=== PATIENT | female | born 1985 | race Caucasian/White ===

== ENCOUNTER 2016-12-22 05:23 | Inpatient (IN) | payer OTHER ==
--- NOTE | ~2016-12-22 | HP ---
Unit #: [id number] #: [id number] Patient: SUMIT MARCUS [id number] [address] [place], [place] [address] [id number] E MR#: [id number] NAME: SUMIT MARCUS ROOM: Age: 31 Sex: F Admission Date: 12/22/2016 : 1985 Attending Physician: Sanjay Antonio M.D. Primary Care Physician: No Primary Care Physician HISTORY AND PHYSICAL CHIEF COMPLAINT Left flank pain, nausea and vomiting. HISTORY This 31-year-old woman is in the emergency department with her , and both speak limited Trinidadian. I spoke with them primarily in Amharic. She developed symptoms over 24 hours and presented for evaluation. This led to a CT scan showing an 8- to 9-mm stone in the mid left ureter with severe hydronephrosis. Urinalysis is also abnormal "as noted above." She is having no fever, chills or voiding complaints. PAST MEDICAL HISTORY No chronic illnesses. SURGERIES Caesarian section. MEDICATIONS Anti-inflammatories only. ALLERGIES None known. FAMILY HISTORY Noncontributory. SOCIAL HISTORY Nonsmoker. REVIEW OF SYSTEMS Difficult to perform. PHYSICAL EXAMINATION GENERAL: On examination patient is lying in bed, fairly comfortable at this time, medicated. VITAL SIGNS: Afebrile with stable vital signs. Temperature 98 degrees, pulse 70, blood pressure 121/76, respirations 12. Height is 5'1", weight 170 pounds. HEENT: Unremarkable. RESPIRATORY: Lungs are clear. CARDIAC: Rate and rhythm are regular. ABDOMEN: Soft, tender in the left CVA area. EXTREMITIES: No edema. NEUROLOGIC: Intact. Unit #: [id number] #: [id number] Patient: SUMIT MARCUS [facility]: Creatinine 0.7. Urinalysis - 2+ leukocyte esterase, 10-20 WBCs, no bacteria or squames. X-RAYS: CT scan of the abdomen and pelvis, as noted, with IV contrast shows stone, 9 x 6 mm, at the level of the pelvic vessels with associated moderately severe hydronephrosis. IMPRESSION Large left mid ureteral stone and possible urinary infection. PLAN Will proceed with cystoscopy, left stent placement. Patient has received Rocephin. Will probably require ureteroscopy, laser stent removal in 10-14 days subsequently. Dictated by Saadia Rivsa/terence TD: 12/22/2016 13:08 JOB #: [id number] HISTORY AND PHYSICAL Page 1 of 1 X Sanjay Mari MD X HISTORY AND PHYSICAL
--- NOTE | ~2016-12-22 | CT2 ---
[facility] A Service of [facility] & [facility] RADIOLOGY TEXT RESULTS PATIENT: SUMIT MARCUS LOCATION: A 218-01 : [birth year] UNIT #: [id number] AGE: [address]: Sanjay Antonio MD SEX: F ORDER DR: [id number] [facility] [address] [facility]. [place], [place] [address] [id number] E MR#: [id number] Acc #: [id number] NAME: SUMIT MARCUS : 1985 SEX: F STUDY DATE/TIME: 12/22/2016 9:30 UNIT: MAX ROOM: STUDY DESCRIPTION: CT Abd and Pelv W Cont Attending Physician: Sanjay Antonio M.D. Ordering Physician: Sanjay Antonio M.D. Primary Care Physician: Primary Care Physician No MEDICAL IMAGING REPORT This report is preliminary unless electronic signature is present EXAM CT abdomen and pelvis with contrast INDICATION Abdominal pain today, nausea and vomiting. TECHNIQUE CT of the abdomen and pelvis was performed following the administration of IV contrast. Coronal and sagittal reformatted images were obtained. There are no comparison studies available. This CT examination was performed with one or more of the following radiation dose reduction techniques: automatic exposure control, adjustment of mA and/or kV according to patient size, and iterative reconstruction. FINDINGS The lung bases are clear. The liver, gallbladder and spleen are unremarkable. There is mild left-sided hydronephrosis. There is inflammatory stranding around the left kidney. There is some enhancement of the urothelium within the renal pelvis and proximal ureter. There is mild hydroureter up until the mid ureter where there is a 8-9 mm obstructing stone located in the mid/distal portion of the left ureter. The right kidney is unremarkable. There is an asymmetric nephrogram due to the presence of the hydronephrosis. The adrenal glands and pancreas are unremarkable. PELVIS: IUD. Colon is unremarkable. The appendix is normal. Bone windows are unremarkable. IMPRESSION There is a 8-9 mm obstructing stone within the mid to distal left ureter with associated mild hydronephrosis and hydroureter on the left with delay in the left nephrogram and inflammatory stranding around the left kidney. [facility]. [facility] A Service of [facility] & [facility] RADIOLOGY TEXT RESULTS PATIENT: SUMIT MARCUS LOCATION: A 218-01 : [birth year] UNIT #: [id number] AGE: [address]: Sanjay Antonio MD SEX: F ORDER DR: Dictated by... Preston Novoa M.D. THIS IS AN ELECTRONICALLY VERIFIED REPORT Preston Novoa M.D. at 12/23/2016 9:11 AM TERRI/eric TD: 12/22/2016 09:57 JOB #: [id number] MEDICAL IMAGING REPORT Page 1 of 1 COPY
--- NOTE | ~2016-12-22 | DS ---
Unit #: [id number] #: [id number] Patient: SUMIT MARCUS [id number] [address] [address] [id number] I MR#: [id number] NAME: SUMIT MARCUS ROOM: 218 Age: 31 Sex: F Admission Date: 12/22/2016 : 1985 Discharge Date: 12/24/2016 Attending Physician: Sanjay Antonio M.D. DISCHARGE SUMMARY PRIMARY DIAGNOSIS Left ureteral calculus. SECONDARY DIAGNOSES Urinary tract infection, Proteus mirabilis. PROCEDURE PERFORMED Cystoscopy with left ureteral stent placement on 12/24/2016. DISPOSITION Home. FOLLOWUP The patient to call office to schedule ureteroscopy, laser lithotripsy, and stent removal in 10 to 14 days. DISCHARGE MEDICATIONS Bactrim double strength one b.i.d. for 10 days; Wyalusing 5/325 1 to 2 every 4 to 6 hours as needed for pain #30. HISTORY OF PRESENT ILLNESS This is a 31-year-old Arabic-speaking woman, who presented through the emergency department with an 8 to 9 mm mid left ureteral calculus and severe hydronephrosis. There was no clear sepsis, but clearly urinary tract infection and with a white count elevation and that she was immediately taken to surgery and a left ureteral stent placed. Overnight, she remained free of fever and was partially improved. She was kept an additional day on Rocephin for urine culture results. Her white count decline to normal. She grew Proteus mirabilis sensitive to Bactrim and ampicillin. She is discharged as noted. Dictated by... Sanjay Mari M.D. MONICA/cleveland TD: 12/25/2016 01:31 JOB #: [id number] Unit #: [id number] #: [id number] Patient: SUMIT MARCUS DISCHARGE SUMMARY Page 1 of 1 X Sanjay Mari MD X DISCHARGE SUMMARY
--- NOTE | ~2016-12-22 | OR ---
Unit #: [id number] #: [id number] Patient: SUMIT MARCUS [id number] [address] [address] [id number] I MR#: [id number] NAME: SUMIT MARCUS ROOM: 218 Date of Procedure: 12/22/2016 Admission Date: 12/22/2016 Surgeon: Sanjay Mari M.D. : 1985 Attending Physician: Sanjay Antonio M.D. Primary Care Physician: Primary Care Physician No OPERATIVE REPORT PREOPERATIVE DIAGNOSES Left ureteral calculus with hydronephrosis and urinary tract infection. POSTOPERATIVE DIAGNOSES Left ureteral calculus with hydronephrosis and urinary tract infection. PROCEDURE PERFORMED Cystoscopy with left ureteral stent placement. ANESTHESIA General. INDICATIONS FOR PROCEDURE This is a 31-year-old woman, who presented to the emergency department with a mid ureteral stone 8 x 6 at the pelvic brim as well as evidence of urinary tract infection and leukocytosis. She had preoperative antibiotics. DESCRIPTION OF PROCEDURE The patient was given satisfactory general anesthesia and positioned in dorsal lithotomy. The genitalia were prepped and draped. The 21-Greenlandic rigid cystoscope was introduced with a 30-degree lens and video. The bladder appeared normal. The orifices were normal. Fluoroscopy demonstrated a persistent nephrogram and collimation of the ureter with some evidence of stone progression distally. A Sensor guidewire was passed beyond the stone readily and a 22 x 6 double-J stent internally deployed in excellent position cystoscopically and fluoroscopically. The bladder was drained and the cystoscope was removed to complete the procedure. The patient will be observed overnight on antibiotics with cultures pending. Dictated by... Saadia Rivas/[place] TD: 12/22/2016 15:55 JOB #: [id number] Unit #: [id number] #: [id number] Patient: SUMIT MARCUS OPERATIVE REPORT Page 1 of 1 X Sanjay Mari MD X PROCEDURE OPERATIVE NOTE
[2016-12-22 06:06] LABS: URINE SOURCE CLEAN CATCH
[2016-12-22 06:09] LABS: BASOPHIL# 0.1 X10e3 (0-0.3); BASOPHIL% 0.4 % (0-2.5); EOSINOPHIL% 0.3 % (0.0-7.0); HEMATOCRIT 42.9 % (35.0-45.0); HEMOGLOBIN 14.4 gm/dL (12.0-16.0); LYMPHOCYTE# 2.1 X10e3 (1.0-3.5); LYMPHOCYTE% 16.3 % (17.0-45.0); MEAN CELL VOLUME 92.8 FL (83-96); MEAN CORPUSCULAR HEMOGLOBIN 31.1 PG (28-34); MEAN CORPUSCULAR HGB CONC 33.5 g/dL (30-36); MEAN PLATELET VOLUME 8.2 FL (6.5-11.5); MONOCYTE# 0.6 X10e3 (0-1.0); MONOCYTE% 4.8 % (3.0-12.0); NEUTROPHIL# 10.1 X10e3 (1.5-7.1); NEUTROPHIL% 78.2 % (40-75); PLATELET COUNT 235 X10e3 (140-420); RED BLOOD COUNT 4.62 X10e (3.90-5.30); RED CELL DISTRIBUTION WIDTH 12.8 % (11.0-15.5); WHITE BLOOD COUNT 12.9 X10e3 (4.0-10.5)
[2016-12-22 06:10] LABS: URINE APPEARANCE SL HAZY; URINE BILIRUBIN NEG (NEG); URINE BLOOD 3+ (NEG); URINE COLOR YELLOW; URINE GLUCOSE NORM (NORM); URINE KETONE NEG (NEG); URINE LEUKOCYTE ESTERASE 2+ (NEG); URINE NITRATE NEG (NEG); URINE PROTEIN 1+ (NEG); URINE SPECIFIC GRAVITY 1.025 (1.003-1.035); URINE UROBILINOGEN NORM (NORM)
[2016-12-22 06:12] LABS: DIFF IND NO
[2016-12-22 06:18] LABS: CULTURE INDICATED? YES; URINE BACTERIA AUWI NEG (NEGATIVE); URINE MUCUS PRESENT; URINE SQUAMOUS EPITHELIAL CELL OCCAS /[HPF]
[2016-12-22 06:36] LABS: ALBUMIN SERUM 4.6 g/dL (3.5-5.0); BILIRUBIN, DIRECT 0.2 mg/dL (0.0-0.2); BILIRUBIN,INDIRECT 0.8 mg/dL (0.0-0.9); CALCIUM SERUM 9.4 mg/dL (8.4-10.2); CREATININE SERUM 0.7 mg/dL (0.6-1.4); GLOM FILT RATE Estimated 113.8 mL/min (>60); POTASSIUM 3.3 mmol/L (3.5-5.1); PROTEIN TOTAL SERUM 7.5 g/dL (6.0-8.3)
[2016-12-22] MEDS ORDERED: NAPROSYN500 MG PO (10:41)
[2016-12-23 06:07] LABS: HEMATOCRIT 36.6 % (35.0-45.0); MEAN CORPUSCULAR HEMOGLOBIN 31.4 PG (28-34); MEAN CORPUSCULAR HGB CONC 33.8 g/dL (30-36); MEAN PLATELET VOLUME 8.2 FL (6.5-11.5); RED BLOOD COUNT 3.94 X10e (3.90-5.30); WHITE BLOOD COUNT 9.4 X10e3 (4.0-10.5)
[2016-12-23 06:11] LABS: HEMOGLOBIN 12.4 gm/dL (12.0-16.0)
[2016-12-23 08:10] LABS: CALCIUM SERUM 8.1 mg/dL (8.4-10.2); CREATININE SERUM 0.6 mg/dL (0.6-1.4); GLOM FILT RATE Estimated 119.8 mL/min (>60); POTASSIUM 3.6 mmol/L (3.5-5.1)
[2016-12-24] MEDS ORDERED: HYDROCODON-ACE1 EAC9 PO (16:42)
[2016-12-24] MEDS ORDERED: BACTRIM DS TAB1 EACH (16:42)
== END 2016-12-24 17:15 | disposition home or self-care (01) | DRG 690 ==
LOC: CED 05:23 → C2A 12:30 → CED 12:30 → C2A 16:22 → CED 16:22 → C2A 16:22 → CED 18:10 → C2A 12-24 17:15
PROVIDERS: Emergency Medicine; Urology
PROC: 0T778DZ Dilation of Left Ureter with Intraluminal Device, Via Natural or Artificial Opening Endoscopic (ICD-10-PCS; principal; 2016-12-22 13:00)
DX: N39.0 Urinary tract infection, site not specified (principal); N13.2 Hydronephrosis with renal and ureteral calculous obstruction; B96.4 Proteus (mirabilis) (morganii) as the cause of diseases classified elsewhere
CPT/HCPCS: 36415; 74177; 80048; 80076; 81003; 82150; 83690; 84703; 85025; 85027; 87086; 87088; 87186; 96361; 96372; 96374; 96375; 99285; C2617; J0500; J0696; J1650; J1885; J2250; J2270; J2405; J3010; Q9967

== ENCOUNTER → 2017-01-07 | Day surgery (SDC) | payer OTHER ==
[~2017-01-07] MED LIST: BACTRIM DS TAB1 EACH; HYDROCODON-ACE1 EAC9 PO; NAPROSYN500 MG PO
--- NOTE | ~2017-01-07 | OR ---
Unit #: [id number] #: [id number] Patient: SUMIT MARCUS [id number] [address] [address] [id number] O MR#: [id number] NAME: SUMIT MARCUS ROOM: Date of Procedure: 01/07/2017 Admission Date: 01/07/2017 Surgeon: Sanjay Mari M.D. : 1985 Attending Physician: Sanjay Mari M.D. Primary Care Physician: [facility] OPERATIVE REPORT PREOPERATIVE DIAGNOSIS Left ureteral stone and stent. POSTOPERATIVE DIAGNOSIS Left ureteral stone and stent. PROCEDURES PERFORMED 1. Left ureteroscopy. 2. Laser lithotripsy. 3. Stent removal. ANESTHESIA General with local supplementation. INDICATIONS FOR PROCEDURE This is a 31-year-old woman, who had a left ureteral stent placed for Proteus pyelonephritis and hydronephrosis, due to an 8 mm stone obstructing the proximal left pelvic ureter. She presents today for definitive management. DESCRIPTION OF PROCEDURE The patient was given preoperative Rocephin and satisfactory general anesthesia. She was positioned in dorsal lithotomy and the genitalia was prepped and draped. The 21-Pashto rigid cystoscope was introduced with a 30-degree lens and video. The distal stent curl was partially calcified and there was periorificial cystitis so the curl was grasped with a flexible Alligator forceps and extracted, then amputated. A Sensor guidewire was passed up through the remainder of the stent. Along side of the guidewire, I placed a rigid ureteroscope without difficulty up to where the stone had sat. It was treated with a 365 nanometer laser fiber at settings of 10 and 1.0 breaking readily into small and medium sized pieces. These were basketed and irrigated out into the bladder. The ureter was well dilated and free of bleeding, swelling, or residual stones so no stent was replaced. Stone fragments were washed out of the bladder, collected, and sent for chemical analysis. The bladder was drained, the cystoscope was removed, and a Uro-jet was applied. The patient will be discharged with 10 additional [place] in the event of pain and is to follow up in 1 month with a renal ultrasound and for stone results. Unit #: [id number] #: [id number] Patient: SUMIT MARCUS Dictated by... Saadia Rivas/[place] TD: 01/07/2017 13:02 JOB #: [id number] OPERATIVE REPORT Page 1 of 1 X Sanjay Mari MD PROCEDURE OPERATIVE NOTE
== END | disposition home or self-care (01) ==
LOC: CSUR 07:33
DX: N20.1 Calculus of ureter (principal); N30.90 Cystitis, unspecified without hematuria; K21.9 Gastro-esophageal reflux disease without esophagitis; Z87.448 Personal history of other diseases of urinary system; Z79.891 Long term (current) use of opiate analgesic; Z79.899 Other long term (current) drug therapy; Z98.890 Other specified postprocedural states
CPT/HCPCS: 84703; 88300; C1758; J0696; J1885; J2250; J2405; J3010

== ENCOUNTER → 2017-02-02 | Outpatient (CLI) | payer OTHER ==
--- NOTE | ~2017-02-02 | US77 ---
[facility] A Service of [facility] & [facility] RADIOLOGY TEXT RESULTS PATIENT: SUMIT MARCUS LOCATION: [facility] : [birth year] UNIT #: [id number] AGE: [address]: Sanjay Mari MD SEX: F ORDER DR: [id number] [facility] [address] [address]. [place], [place] [address] [id number] O MR#: [id number] Acc #: [id number] NAME: SUMIT MARCUS : 1985 SEX: F STUDY DATE/TIME: 02/02/2017 14:02 UNIT: [facility] ROOM: STUDY DESCRIPTION: US Kidney Bilateral Complete Attending Physician: Sanjay Mari M.D. Referring Physician: Sanjay Mari M.D. Ordering Physician: Sanjay Mari M.D. Primary Care Physician: [facility], [facility] MEDICAL IMAGING REPORT This report is preliminary unless electronic signature is present EXAM Renal ultrasound, 02/02/2017 HISTORY Follow up left-sided hydronephrosis, status post stone removal left side, 01/07/2017. FINDINGS The right kidney measured 11 cm while the left kidney measured 11.8 cm in longitudinal dimensions. There is no evidence of hydronephrosis or nephrolithiasis. No cystic or solid mass lesions were seen on either kidney. There is normal renal cortical echogenicity. Images of the bladder are normal. Incidental note is made of fatty infiltration of the liver. IMPRESSION 1. Negative renal ultrasound. No evidence of hydronephrosis. 2. Images of the bladder are normal. 3. Incidental note is made of fatty infiltration of the liver. Dictated by... Juan M Bravo M.D. THIS IS AN ELECTRONICALLY VERIFIED REPORT Juan M Bravo M.D. at 02/04/2017 8:19 AM ABHISHEK/fan TD: 02/02/2017 17:29 JOB #: [id number] MEDICAL IMAGING REPORT Page 1 of 1 COPY
== END | disposition home or self-care (01) ==
LOC: CGUS 13:30
DX: N20.0 Calculus of kidney (principal)
CPT/HCPCS: 76770